=== PATIENT | male | born 2000 | race Caucasian/White ===

== ENCOUNTER 2020-08-28 21:09 | Emergency (ER) | payer BC | END 2020-08-28 22:14 | disposition home or self-care (01) | LOC: ERS 21:09 | DX: S90.32XA Contusion of left foot, initial encounter (principal); W22.8XXA Striking against or struck by other objects, initial encounter; Y93.6A Activity, physical games generally associated with school recess, summer camp and children ==

== ENCOUNTER 2024-05-23 11:55 | Outpatient (CLI) | payer BC | END 2024-05-23 11:56 | disposition home or self-care (01) | LOC: SCSRAD 11:55 | PROVIDERS: ATTEND Family Medicine | DX: M79.672 Pain in left foot (principal) ==